=== PATIENT | male | born 1960 | race Caucasian/White ===

== ENCOUNTER 2017-04-06 21:20 | Emergency (ER) | payer OTHER ==
--- NOTE | 2017-04-06 22:15 | ER Document Report ---
ED Syncope and Near Syncope - General Chief Complaint: Syncope Stated Complaint: BLOOD PRESSURE PROBLEMS Time Seen by Provider: 04/06/17 22:08 Mode of Arrival: Ambulatory Information source: Patient TRAVEL OUTSIDE OF THE [place] IN LAST 30 DAYS: No - HPI Patient complains to provider of: Nearly fainting Symptoms prior to episode: Dizziness, Lightheaded Quality of pain: No pain Context: Almost passed out Injury location: None Current symptoms: Weakness - Generalized Notes: Patient is a 57-year-old male presenting to the emergency room for near syncopal event, he was at work and started to feel lightheaded and dizzy like he was going to pass out, he took his blood pressure and it was 67/40 on his home monitor, he has had 2 or 3 episodes over the last few weeks with similar symptoms, he denies any region and injury illness or trauma, no fever or chills , states he ate well and drinking of fluids throughout the day, he does take 2 blood pressure medications in the morning which include atenolol and lisinopril , patient is also a diabetic, reports his blood sugar was 119, patient's blood pressure is 103/66 in triage area, he denies any chest pain or shortness of breath, no headache, no nausea or vomiting - Related Data Allergies/Adverse Reactions: aspirin [Aspirin] Adverse Reaction (Intermediate, Verified 07/22/14 08:07) n/v Past Medical History - General Information source: Patient - Social History Smoking Status: Never Smoker Family History: Reviewed & Not Pertinent Patient has suicidal ideation: No Patient has homicidal ideation: No - Past Medical History Cardiac Medical History: Reports: Hx Hypertension Denies: Hx Coronary Artery Disease, Hx Heart Attack Pulmonary Medical History: Denies: Hx Asthma, Hx Bronchitis, Hx COPD, Hx Pneumonia Neurological Medical History: Denies: Hx Cerebrovascular Accident, Hx Seizures Renal/ Medical History: Denies: Hx Peritoneal Dialysis Musculoskeltal Medical History: Reports Hx Arthritis - Immunizations Hx Diphtheria, Pertussis, Tetanus Vaccination: No Hx Pneumococcal Vaccination: 04/02/14 Review of Systems - Review of Systems Constitutional: No symptoms reported EENT: No symptoms reported Cardiovascular: See HPI Respiratory: No symptoms reported Gastrointestinal: No symptoms reported Genitourinary: No symptoms reported Male Genitourinary: No symptoms reported Musculoskeletal: No symptoms reported Skin: No symptoms reported Hematologic/Lymphatic: No symptoms reported Neurological/Psychological: No symptoms reported -: Yes All other systems reviewed and negative Physical Exam - Vital signs Vitals: Temp Pulse Resp BP Pulse Ox 97.4 F 77 16 103/66 96 04/06/17 21:22 04/06/17 21:22 04/06/17 21:22 04/06/17 21:22 04/06/17 21:22 Interpretation: Normal - General General appearance: Appears well, Alert - HEENT Head: Normocephalic, Atraumatic Eyes: Normal Pupils: PERRL - Respiratory Respiratory status: No respiratory distress Chest status: Nontender Breath sounds: Normal Chest palpation: Normal - Cardiovascular Rhythm: Regular Heart sounds: Normal auscultation Murmur: No - Abdominal Inspection: Normal, Morbidly Obese Distension: No distension Bowel sounds: Normal Tenderness: Nontender Organomegaly: No organomegaly - Back Back: Normal, Nontender - Extremities General upper extremity: Normal inspection, Nontender, Normal color, Normal ROM , Normal temperature General lower extremity: Normal inspection, Nontender, Normal color, Normal ROM , Normal temperature, Normal weight bearing. No: Anel's sign - Neurological Neuro grossly intact: Yes Cognition: Normal Orientation: AAOx4 Norma Coma Scale Eye Opening: Spontaneous Norma Coma Scale Verbal: Oriented Wardell Coma Scale Motor: Obeys Commands Wardell Coma Scale Total: 15 Speech: Normal Motor strength normal: LUE, RUE, LLE, RLE Sensory: Normal - Psychological Associated symptoms: Normal affect, Normal mood - Skin Skin Temperature: Warm Skin Moisture: Dry Skin Color: Normal Course - Re-evaluation Re-evalutation: 04/07/17 03:09 Patient resting comfortably, reports feeling much better, he does have a slightly worsening headaches of a CT head was performed which is unremarkable, lab findings were discussed with patient at bedside which are unremarkable as well, he was advised to hold his lisinopril for the next few days and follow-up with his primary care provider as I believe his blood pressure medications are likely too strong for him at this point, patient was advised to return if any additional concerns, patient acknowledges understanding and agreement with this plan - Vital Signs Vital signs: Temp Pulse Resp BP Pulse Ox 98.6 F 71 14 127/74 H 96 04/07/17 02:32 04/07/17 00:10 04/07/17 02:32 04/07/17 02:32 04/07/17 02:32 - Laboratory Result Diagrams: 04/06/17 22:45 04/06/17 22:45 Laboratory results interpreted by me: 04/06/17 22:45 Glucose 190 H - Diagnostic Test Radiology reviewed: Image reviewed, Reports reviewed - EKG Interpretation by Me EKG shows normal: Sinus rhythm Rate: Normal Rhythm: NSR Discharge - Discharge Clinical Impression: Syncope, near Headache Qualifiers: Headache type: unspecified Headache chronicity pattern: acute headache Intractability: not intractable Qualified Code(s): R51 - Headache Condition: Stable Disposition: HOME, SELF-CARE Instructions: Headache ([facility]), Hypotension ([facility]), Near Syncopal Episode ([facility]), Orthostatic Hypotension ([facility]) Additional Instructions: Follow up with your primary care provider in one to 2 days. Return to the emergency room immediately if symptoms worsen or any additional concerns. Hold her lisinopril until blood pressure improves or your primary care provider tells you otherwise. Referrals: LIEN GLASER MD [Primary Care Provider] - Follow up as needed
[2017-04-06] MEDS: NORMAL SALINE 1000 ML 1,000 ML IV PRN (22:43)
[2017-04-06 23:18] LABS: ABSOLUTE EOSINOPHILS # (AUTO) 0.5 10^3/uL (0.0-0.6); ABSOLUTE LYMPHOCYTES (AUTO) 1.7 10^3/uL (0.5-4.7); ABSOLUTE MONOCYTES (AUTO) 0.4 10^3/uL (0.1-1.4); ABSOLUTE NEUT (AUTO) 7.8 10^3/uL (1.7-8.2); BASOPHILS % (AUTO) 0.3 % (0-2); EOSINOPHILS % (AUTO) 4.8 % (0-6); HEMOGLOBIN 14.3 g/dL (13.5-17.0); HGB HCT DIFFERENCE 0.9; LYMPHOCYTES % (AUTO) 15.9 % (13-45); MEAN CORPUSCULAR HEMOGLOBIN 29.4 pg (27.0-33.4); MEAN CORPUSCULAR VOLUME 87 fl (80-97); RED BLOOD COUNT 4.84 10^6/uL (4.35-5.55); RED CELL DISTRIBUTION WIDTH 13.2 % (11.5-14.0); WHITE BLOOD COUNT 10.5 10^3/uL (4.0-10.5)
[2017-04-06 23:22] LABS: ALANINE AMINOTRANSFERASE 46 U/L (21-72); ALBUMIN 3.9 g/dL (3.5-5.0); ALKALINE PHOSPHATASE 60 U/L (38-126); ANION GAP 9 (5-19); ASPARTATE AMINO TRANSFERASE 25 U/L (17-59); BILIRUBIN,DIRECT 0.3 mg/dL (0.0-0.4); BILIRUBIN,TOTAL 0.5 mg/dL (0.2-1.3); BLOOD UREA NITROGEN 16 mg/dL (7-20); CALCIUM 9.7 mg/dL (8.4-10.2); CARBON DIOXIDE 26 mmol/L (22-30); CHLORIDE 105 mmol/L (98-107); CREATINE KINASE 83 U/L (55-170); CREATININE RESULT 0.91 mg/dL (0.52-1.25); GLUCOSE 190 mg/dL (75-110); POTASSIUM 4.5 mmol/L (3.6-5.0); SODIUM 139.7 mmol/L (137-145); TOTAL PROTEIN 6.5 g/dL (6.3-8.2)
[2017-04-06 23:32] LABS: CREATINE KINASE MB 1.53 ng/mL (<4.55)
[2017-04-06 23:36] LABS: TROPONIN I < 0.012 ng/mL
[2017-04-07 00:28] LABS: APPEARANCE,URINE CLEAR; BILIRUBIN,URINE NEGATIVE (NEGATIVE); GLUCOSE, URINE NEGATIVE (NEGATIVE); KETONES,URINE NEGATIVE (NEGATIVE); LEUKOCYTE ESTERASE,URINE NEGATIVE (NEGATIVE); NITRITE,URINE NEGATIVE (NEGATIVE); PROTEIN,URINE NEGATIVE (NEGATIVE); URINE SPECIFIC GRAVITY 1.025; UROBILINOGEN,URINE NEGATIVE mg/dL (<2.0)
[2017-04-07] MEDS ORDERED: METOCLOPRAMIDE HCL INJ/PF 10 MG/2 ML SDV IV ONE (00:35)
[2017-04-07] MEDS ORDERED: DIPHENHYDRAMINE HCL 50 MG/ML VIAL IV ONE (00:35)
[2017-04-07] MEDS ORDERED: NORMAL SALINE 1000 ML 1,000 ML IV PRN (00:35)
[2017-04-07] MEDS: NORMAL SALINE 1000 ML 1,000 ML IV PRN (01:00)
[2017-04-07] MEDS ORDERED: KETOROLAC TROMETHAMINE INJ/PF 30 MG/1 ML SDV IV ONE (02:06)
[2017-04-07] MEDS ORDERED: ONDANSETRON HCL INJ/PF 4 MG/2 ML SDV IV ONE (02:06)
--- NOTE | 2017-04-07 02:20 | RADIOLOGY REPORT (SQ) ---
EXAM: CT head without contrast. INDICATION: Headache. TECHNIQUE: Contiguous axial CT images of the brain. Intravenous contrast: Absent. DLP 1162 mGy-cm. This exam was performed according to our departmental dose-optimization program, which includes automated exposure control, adjustment of the mA and/or kV according to patient size and/or use of iterative reconstruction technique. COMPARISON: None. FINDINGS: Subcutaneous: Unremarkable. No acute intracranial hemorrhage. There are mild vascular changes along the right periventricular white matter. There is a 2 cm arachnoid cyst along the right frontal region. No midline shift. No mass effect. Ventricles: No hydrocephalus. Stafford-white differentiation preserved. Paranasal sinuses/mastoid air cells: Visualized portions are aerated. Bones/orbits: Visualized portions are unremarkable. IMPRESSION: 1. No CT evidence of acute intracranial hemorrhage.
[2017-04-07 02:41] VITALS: BP 127/74
--- NOTE | 2017-04-07 11:15 | EKG REPORT ---
SEVERITY:- BORDERLINE ECG - SINUS RHYTHM MARKEDLY POSTERIOR QRS AXIS LOW VOLTAGE IN FRONTAL LEADS : Confirmed by: Bonny Pena MD 07-Apr-2017 11:14:59
== END 2017-04-07 02:53 | disposition home or self-care (01) ==
LOC: ER 21:20
DX: R55 Syncope and collapse (principal); R51 Headache; R42 Dizziness and giddiness; R53.1 Weakness; I10 Essential (primary) hypertension; Z88.6 Allergy status to analgesic agent
CPT/HCPCS: 93005; 99284; 96361; 96374; 96375; 36415; 82553; 82550; 85025; 80053; 81001; 84484; 70450; 93010; J1200; J1885; J2765; J2405; J7030 ×2

== ENCOUNTER 2017-08-09 09:39 | Day surgery (SDC) | payer OTHER ==
[~2017-08-09 09:39] MED LIST: DIPHENHYDRAMINE HCL 50 MG/ML VIAL ONE; EPINEPHRINE INJ 1 MG/10 ML DISP.SYRIN ONE; FLUMAZENIL INJ 0.5 MG/5 ML VIAL ONE; GLUCAGON,HUMAN RECOMB 1 MG INJ ONE; NALOXONE HCL INJ/PF 0.4 MG/1 ML SDV ONE; ONDANSETRON HCL INJ/PF 4 MG/2 ML SDV ONE
[2017-08-09] MEDS: MIDAZOLAM 2 MG/2 ML INJ ONE ×3 (10:04→10:26)
[2017-08-09] MEDS: FENTANYL CITRATE INJ/PF 100 MCG/2 ML AMPUL ONE ×2 (10:10→10:20)
[2017-08-09 11:41] VITALS: BP 132/81
--- NOTE | 2017-08-09 12:55 | Operative Report ---
Operative Report DATE OF SURGERY: 08/09/17 Operative Report: The risks, benefits and alternatives of the procedure including risks of bleeding, perforation requiring surgery are explained to the patient in detail and informed consent was obtained. Patient is brought back to the endoscopy suite and placed in the left, lateral decubital position. Timeout was called. Conscious sedation medications are provided. A rectal examination is done which did not reveal any masses tears or fissures. An Olympus videoscope was inserted into the patient's rectum. It is advanced to the cecum with some difficulty given the fact that the patient both has a redundant colon and that the prep was not adequate. The cecum is identified by evaluation partially of the ileocecal valve but there is solid stool in the vault of the cecum. Irrigation just obscured the vision even more. The scope was then sequentially pulled back via the rest segments of the colon including the ascending colon, hepatic flexure, transverse colon, splenic flexure, descending colon finding to the rectosigmoid portions of the colon. Retroflexion maneuver is performed. PREOPERATIVE DIAGNOSIS: Personal history of polyp POSTOPERATIVE DIAGNOSIS: Redundant colon. Inadequately prepped colon. Internal hemorrhoids. Colon polypremoved via snare polypectomy. OPERATION: Colonoscopy with snare polypectomy SURGEON: MINH MONIQUE ANESTHESIA: LMAC - 5 mg of Versed, 100 mcg of fentanyl. Conscious sedation monitoring time 30 minutes. TISSUE REMOVED OR ALTERED: As noted above. COMPLICATIONS: None. ESTIMATED BLOOD LOSS: None. INTRAOPERATIVE FINDINGS: As noted above. PROCEDURE: Patient tolerated the procedure well. No immediate postprocedure complications are noted. Patient discharged in good condition. Discharge date 08/09/2017. Discharge diet: Regular. Discharge activity: Regular. 2-3 week follow-up to discuss findings. Patient will need colonoscopy, alternatives. Alternatives sedation next year. Pending the pathology of the polyp. Patient is instructed to call the office or proceed to the emergency room if that should be any further problems or questions.
== END 2017-08-09 11:45 | disposition home or self-care (01) ==
LOC: END 09:39
PROVIDERS: ATTEND Internal Medicine Gastroenterology
PROC: 0DBN8ZX Excision of Sigmoid Colon, Via Natural or Artificial Opening Endoscopic, Diagnostic (ICD-10-PCS; principal; 2017-08-09 10:00)
DX: Z12.11 Encounter for screening for malignant neoplasm of colon (principal); D12.5 Benign neoplasm of sigmoid colon; K64.8 Other hemorrhoids; I10 Essential (primary) hypertension; E11.9 Type 2 diabetes mellitus without complications
CPT/HCPCS: 45380; 82962; 88305 ×2; J2250; J3010; J0171; J1200; J1610; J2310; J2405; J3490